=== PATIENT | male | born 1995 | race Caucasian/White ===

== ENCOUNTER 2022-09-20 18:54 | Emergency (ER) | payer BC ==
[~2022-09-20] VITALS: Ht 170.2 cm; Wt 61.0 kg
[2022-09-20 19:01] VITALS: BP 136/79
== END 2022-09-20 22:08 | disposition left against medical advice (07) ==
LOC: ER 18:54
DX: Z53.21 Procedure and treatment not carried out due to patient leaving prior to being seen by health care provider (principal)
CPT/HCPCS: 99281